=== PATIENT | female | born 1995 | race Caucasian/White ===

== ENCOUNTER 2025-05-02 10:55 | Emergency (ER) | payer MEDICAID ==
[~2025-05-02] VITALS: Ht 167.6 cm; Wt 55.0 kg
[2025-05-02 11:04] VITALS: O2SAT 96
[2025-05-02 11:57] LABS: CLARITY URINE CLEAR (CLEAR); COLOR URINE YELLOW (YELLOW); GLUCOSE URINE NEGATIVE (NEGATIVE); KETONES URINE 3+ (NEGATIVE); LEUKOCYTE ESTERASE URINE 1+ (NEGATIVE); NITRITE URINE NEGATIVE (NEGATIVE); OCCULT BLOOD URINE TRACE (NEGATIVE); PH URINE 6.0 (4.5-8.0); PROTEIN URINE NEGATIVE (NEGATIVE); SPECIFIC GRAVITY URINE 1.010 (1.005-1.030); UROBILINOGEN URINE 0.2 E.U./dL (0.2-1.0)
[2025-05-02 12:17] LABS: BASOPHILS % 0.2 % (0.0-2.0); EOSINOPHILS % 0.5 % (0.0-5.0); HEMATOCRIT. 27.5 % (36.0-48.0); HEMOGLOBIN. 9.2 g/dL (12.0-16.0); LYMPHOCYTES % 13.0 % (20.0-50.0); MEAN PLATELET VOLUME 9.7 fl (7.4-10.4); MONOCYTES % 6.9 % (2.0-8.0); NEUTROPHILS % 79.4 % (40.0-76.0); PLATELET 161 x1000/uL (130-400); RED BLOOD CELL COUNT 2.95 mill/uL (4.2-5.4); RED CELL DISTRIBUTION WIDTH 16.0 % (11.6-14.6)
[2025-05-02 12:24] LABS: SQUAMOUS EPITHELIAL CELL URINE 2+ /lpf (RARE/1+)
[2025-05-02 12:25] LABS: MUCUS URINE TRACE /lpf (< = 2+)
[2025-05-02 12:27] LABS: BACTERIA URINE TRACE; RBC URINE 0-2 /hpf (0-2)
[2025-05-02 12:34] LABS: INR 0.9
[2025-05-02 12:38] LABS: CREATININE 0.4 mg/dL (0.6-1.0)
[2025-05-02 12:39] LABS: UREA NITROGEN BLOOD < 5 mg/dL (9-23)
[2025-05-02 12:40] LABS: ASPARTATE AMINOTRANSFERASE 13 IU/L (<34); BILIRUBIN DIRECT 0.1 mg/dL (<=3.0)
[2025-05-02 12:41] LABS: BILIRUBIN TOTAL 0.6 mg/dL (0.1-1.0); PROTEIN TOTAL 5.9 g/dL (6.0-8.3)
[2025-05-02] MEDS: SODIUM CHLORIDE 0.9% 1,000 ML IV NR (13:24)
[2025-05-02] MEDS: CEFTRIAXONE 1GM/50ML 50 ML IV SCH (13:24)
[2025-05-02 14:00] VITALS: BP 112/72; PULSE 93; RESP 18; TEMP 36.9; O2SAT 99
== END 2025-05-02 14:31 | disposition short-term general hospital (02) ==
LOC: ER 10:55
DX: O23.43 Unspecified infection of urinary tract in pregnancy, third trimester (principal); Z3A.36 36 weeks gestation of pregnancy
CPT/HCPCS: 99285; 96365; 76805; 80076; 80048; 81003; 85025; 85610; 85730; 36415; J0696